=== PATIENT | male | born 1940 | race Caucasian/White ===

== ENCOUNTER 2017-05-16 11:38 | Inpatient (IN) | payer OTHER ==
--- NOTE | ~2017-05-16 | DS ---
Unit #: [id number] #: [id number] Patient: STEVE COBURN [id number] [address] [address] [id number] I MR#: [id number] NAME: STEVE COBURN. ROOM: 305 Age: 77 Sex: M Admission Date: 05/16/2017 : 1940 Discharge Date: 05/18/2017 Attending Physician: Sybil Upton M.D. Primary Care Physician: Ko Caban M.D. DISCHARGE SUMMARY DIAGNOSES ON ADMISSION 1. Gross hematuria. 2. Acute urinary tract infection. DIAGNOSES ON DISCHARGE 1. Gross hematuria. 2. Acute Kluyvera urinary tract infection. 3. Acute yeast urinary tract infection. 4. Chronic atrial fibrillation. 5. Type 2 diabetes mellitus with peripheral neuropathy. 6. Hyperlipidemia. 7. Hypertension. 8. Early Alzheimer's dementia. 9. Benign prostatic hypertrophy. 10. Gastroesophageal reflux disease. 11. Depression. CONSULTATION Dr. Mantilla in urology consultation. LABS AND PROCEDURES DONE The patient's creatinine is 0.9, sodium 132, potassium is 3.9, AST and ALT is within normal limits, INR is 1.2, WBC 7.8, hemoglobin is 14.0, platelet count is 117. Urinalysis revealed 25-50 WBCs, and yeast was present. Urine culture is positive for Kluyvera, greater than 100,000. Hemoglobin A1c is 10.4, blood cultures did not reveal any growth. CT scan of head did not reveal any acute intracranial findings. CT scan of abdomen and pelvis revealed mild straining around bladder. HOSPITAL COURSE Kqigtai-ribd-nonu-old male was admitted to [facility] with gross hematuria, details are as per admission history and physical. The patient was seen by urology in consultation. The patient's gross hematuria is likely secondary to acute urinary tract infection. The patient's urine is clear now. The patient will be treated with antibiotic for yeast and bacterial infection. Today, the patient is comfortable. He is anxious to go home. RECOMMENDATIONS ON DISCHARGE Condition is stable. Activity is as tolerated. Unit #: [id number] #: [id number] Patient: STEVE COBURN DISCHARGE MEDICATIONS 1. Flomax 0.4 mg p.o. daily 2. Xarelto 15 mg p.o. daily 3. Neurontin 100 mg p.o. b.i.d. 4. Prozac 20 mg p.o. daily 5. Lipitor 40 mg p.o. q.h.s. 6. Namenda 10 mg p.o. b.i.d. 7. Metoprolol 50 mg p.o. b.i.d. 8. Lisinopril 5 mg p.o. daily 9. Enteric coated aspirin 81 mg p.o. daily 10. Glipizide 10 mg p.o. b.i.d. 11. Vitamin B12 1000 mcg p.o. daily 12. Nitrofurantoin 100 mg p.o. b.i.d. for one week 13. Diflucan 100 mg p.o. daily for five days FOLLOWUP The patient is advised to follow up with primary care physician in one week and have a CBC and BMP done. The patient is advised to call primary care physician or go to the ER if his condition changes. The patient is advised to follow up with urology as recommended. Please make note that the patient's diabetes is under poor control and he may need insulin. I will leave this up to the patient's primary care physician. I have discussed discharge plan with the patient's son and tkpycuce-nt-pap yesterday in detail. Dictated by... Bobbi Martinez/to TD: 05/19/2017 08:20 JOB #: [id number] DISCHARGE SUMMARY Page 1 of 1 X Sybil Upton MD X DISCHARGE SUMMARY
--- NOTE | ~2017-05-16 | CT4 ---
[facility] A Service of [facility] RADIOLOGY TEXT RESULTS PATIENT: STEVE COBURN LOCATION: [facility] : 42 UNIT #: [id number] AGE: [address]: Octavio Drake DO SEX: M ORDER DR: [id number] [facility] [address] [place], [place] [address] [id number] E MR#: [id number] Acc #: [id number] NAME: STEVE COBURN. : 1940 SEX: M STUDY DATE/TIME: 05/16/2017 12:39 UNIT: JOANNA ROOM: STUDY DESCRIPTION: CT Abd and Pelv Wo Cont Attending Physician: Octavio Drake D.O. Ordering Physician: Octavio Drake D.O. Primary Care Physician: Ko Caban M.D. MEDICAL IMAGING REPORT This report is preliminary unless electronic signature is present EXAM CT abdomen and pelvis INDICATIONS Hematuria for 2 days. Prostatic hypertrophy. Dizziness. TECHNIQUE CT abdomen and pelvis without contrast. Coronal and sagittal reconstructions were obtained. This CT exam was performed with one or more of the following radiation dose reduction techniques: automatic exposure control, adjustment of mA and/or kV according to patient size, and iterative reconstruction. COMPARISON CT abdomen and pelvis dated 02/07/11. FINDINGS Abdomen: The heart is mildly enlarged. No pericardial or pleural effusion. No urinary calculi. No hydronephrosis. The liver, gallbladder, pancreas, spleen, and adrenal glands are within normal limits. The bowel is not dilated. Patient does have a gastric band. Orientation of gastric band is within normal limits. The bowel is not dilated. There is a small umbilical hernia. The appendix is normal. The abdominal aorta is normal in caliber. Pelvis: There is some mild stranding associated with the bladder. No significant bladder wall thickening. No enlarged pelvic or inguinal lymph nodes. [facility] A Service of [facility] RADIOLOGY TEXT RESULTS PATIENT: STEVE COBURN LOCATION: [facility] : 42 UNIT #: [id number] AGE: [address]: Octavio Drake DO SEX: M ORDER DR: No acute osseous abnormalities. IMPRESSION 1. Mild stranding around the bladder. Please correlate with urinalysis to identify any cystitis. 2. No urinary calculi. No hydronephrosis. Dictated by... Deven Goldsmith M.D. THIS IS AN ELECTRONICALLY VERIFIED REPORT Deven Goldsmith M.D. at 05/16/2017 3:26 PM JILLIAN/parminder TD: 05/16/2017 13:53 JOB #: [id number] MEDICAL IMAGING REPORT Page 1 of 1 COPY
--- NOTE | ~2017-05-16 | HP ---
Unit #: [id number] #: [id number] Patient: STEVE COBURN [id number] [address] [address] [id number] I MR#: [id number] NAME: STEVE COBURN. ROOM: 305 Age: 77 Sex: M Admission Date: 05/16/2017 : 1940 Attending Physician: Sybil Upton M.D. Primary Care Physician: Ko Caban M.D. HISTORY AND PHYSICAL CHIEF COMPLAINT Blood in the urine. HISTORY OF PRESENT ILLNESS The patient is 77 year old male with history of atrial fibrillation, diabetes, hypertension, dementia, who presented to the emergency room with blood in the urine. The patient stated the blood in the urine has been present on and off for the last one week. The patient also complains of generalized weakness and presented to the emergency room. The patient was found to have a UTI with urine positive for 2+ leukocyte esterase, positive nitrates, 4+ blood and innumerable rbc's and is being admitted for the above reasons. Denies any fever or chills, nausea or vomiting. Denies any blood in the stools. Denies any productive cough. PAST MEDICAL HISTORY 1. History of atrial fibrillation. 2. Diabetes mellitus. 3. Hyperlipidemia. 4. Hypertension. 5. Alzheimer dementia. 6. BPH. 7. GERD. 8. Depression. PAST SURGICAL HISTORY 1. History of cardiac ablation. 2. Rotator cuff repair. 3. Lap-Band. HOME MEDICATIONS 1. Lopressor. 2. Lipitor. 3. Glipizide. 4. Memantine. 5. Neurontin. 6. Zestril. 7. Prozac. 8. Flomax. 9. Aspirin. 10. Vitamin B12. 11. Xarelto. Unit #: [id number] #: [id number] Patient: STEVE COBURN ALLERGIES None. SOCIAL HISTORY The patient lives with his . He stopped smoking 33 years ago. Does not drink alcohol. FAMILY HISTORY Positive for congestive heart failure. REVIEW OF SYSTEMS A 14-point review of systems performed and only pertinent positive findings as described above, remaining are negative. PHYSICAL EXAMINATION VITAL SIGNS: Temperature 99.3, pulse 68, respiratory rate 18, blood pressure 109/78, saturating 96% at room air. GENERAL: Patient is lying on the bed not in acute distress. HEENT: Atraumatic, normocephalic. Pupils equal, round, and reactive to light and accommodation. Extraocular movements are intact. NECK: Supple. LUNGS: Decreased air entry at the bases. HEART: Irregular rate and rhythm. ABDOMEN: Soft, positive bowel sounds. EXTREMITIES: No cyanosis, no clubbing. NEUROLOGIC: Alert, awake, oriented. No gross focal motor deficit. DIAGNOSTIC STUDIES LABORATORY: UA shows 2+ leukocyte esterase, positive nitrates, urine rbc's innumerable, 4+ blood, urine wbc's 25-50, urine bacteria 3+. WBC 9.6, hemoglobin 14.6, hematocrit 45.3, platelets 122. INR 1.2. Sodium 132, potassium 5.2, chloride 98, bicarb 27, glucose 327, BUN 22, creatinine 1, AST 17, ALT 20, alkaline phosphatase 99. IMAGING: CT abdomen and pelvis shows mild stranding around the bladder. Please correlate with urinalysis to identify any cystitis. No urinary calculi. No hydronephrosis. CT head showed no acute intracranial findings. Atrophy and chronic small vessel changes. PLAN 1. Admit patient as inpatient with telemetry. 2. IV antibiotics with Rocephin. 3. Urology consult for hematuria. 4. Hold Xarelto and aspirin. 5. Patient is running hypotensive with blood pressure running in the 90s. 6. We have started the patient on a sepsis protocol. 7. Continue with IV fluids at 100 mL per hour. 8. Check lactic acid. 9. Further recommendations will follow. Dictated by Unit #: [id number] #: [id number] Patient: STEVE COBURN M.D. AMA/eugene TD: 05/16/2017 18:41 JOB #: [id number] HISTORY AND PHYSICAL Page 1 of 1 X ELINA IBANEZ MD X HISTORY AND PHYSICAL
--- NOTE | ~2017-05-16 | CT71 ---
[facility] A Service of [facility] RADIOLOGY TEXT RESULTS PATIENT: STEVE COBURN LOCATION: [facility] : 42 UNIT #: [id number] AGE: [address]: Octavio Drake DO SEX: M ORDER DR: [id number] [facility] [address] [place], [place] [address] [id number] E MR#: [id number] #: [id number] NAME: STEVE COBURN : 1940 SEX: M STUDY DATE/TIME: 05/16/2017 12:27 UNIT: JOANNA ROOM: STUDY DESCRIPTION: CT Head Wo Contrast Attending Physician: Octavio Drake D.O. Ordering Physician: Octavio Drake D.O. Primary Care Physician: Ko Caban M.D. MEDICAL IMAGING REPORT This report is preliminary unless electronic signature is present EXAM CT head INDICATIONS Hematuria. Dizziness. Vision changes. TECHNIQUE CT head without contrast. This CT exam was performed with one or more of the following radiation dose reduction techniques: automatic exposure control, adjustment of mA and/or kV according to patient size, and iterative reconstruction. COMPARISON CT head 06/01/2015 FINDINGS There is no acute intracranial hemorrhage, mass lesion, or acute infarct. Hypodensities in the periventricular and subcortical white matter consistent with chronic small vessel changes. The ventricles and basilar cisterns are normal in size and configuration. No extraaxial collections. No acute osseous abnormalities. Visualized paranasal sinuses and mastoid air cells are clear. IMPRESSION 1. No acute intracranial findings. 2. Atrophy and chronic small vessel changes. Dictated by... Deven Goldsmith M.D. THIS IS AN ELECTRONICALLY VERIFIED REPORT Deven Goldsmith M.D. at 05/16/2017 3:26 PM [facility] A Service of [facility] RADIOLOGY TEXT RESULTS PATIENT: STEVE COBURN LOCATION: [facility] : 42 UNIT #: [id number] AGE: [address]: Octavio Drake DO SEX: M ORDER DR: Lawrence TD: 05/16/2017 14:36 JOB #: [id number] MEDICAL IMAGING REPORT Page 1 of 1 COPY
--- NOTE | ~2017-05-16 | CO ---
Unit #: [id number] #: [id number] Patient: STEVE ÁLVAREZ [id number] [address] [place], [place] [address] [id number] I MR#: [id number] NAME: STEVE ÁLVAREZ. ROOM: 305 Age: 77 Sex: M Admission Date: 05/16/2017 : 1940 Attending Physician: Sybil Upton M.D. Primary Care Physician: Ko Caban M.D. Consultation Date: 05/17/2017 CONSULTATION REPORT CHIEF COMPLAINT Gross hematuria. HISTORY OF PRESENT ILLNESS Mr. Álvarez is a 77-year-old gentleman with gross hematuria and discomfort with urination since . The patient has a history of BPH. He states he has had problems urinating in the past. He reports he had been taking Flomax, but he ran out of the medication and then he started noticing having more problems urinating and then there was blood in his urine and discomfort with urination. He denes fever or chills. He has a history of anticoagulation for atrial fibrillation I believe. He states he is able to empty completely, but it is a little more difficult to empty since the blood and the discomfort started. PAST MEDICAL HISTORY 1. Atrial fibrillation. 2. BPH. 3. Congestive heart failure. 4. TIA. 5. Diabetes. 6. Congestive heart failure. SOCIAL HISTORY He denies smoking and drinking. FAMILY HISTORY Noncontributory. ALLERGIES No known drug allergies. CURRENT MEDICATIONS 1. Flomax. 2. Xarelto. 3. Aspirin. 4. Neurontin. 5. Glipizide. 6. Lisinopril. 7. Fluoxetine. 8. Metoprolol. 9. Amantadine. 10. Atorvastatin. REVIEW OF SYSTEMS Unit #: [id number] #: [id number] Patient: STEVE ÁLVAREZ Negative for 10 systems except for discomfort with urination and the blood in the urine. PHYSICAL EXAMINATION VITALS: Stable. He is afebrile. HEENT: Eyes equal and reactive to light. Trachea midline. LUNGS: Benign. HEART: Benign, but some atrial fibrillation. Rapid heart rate was not appreciated. ABDOMEN: Soft without rebound or guarding. No CVA tenderness. No bruising. Mild suprapubic tenderness bilaterally. : Descended testicles. Normal external genitalia. Normal meatus. There is no tenderness on his genitals. EXTREMITIES: No cyanosis, clubbing. NEUROLOGIC: Cranial nerves II through X are intact. DIAGNOSTIC STUDIES LABORATORY: Creatinine 1.0, INR 1.2, white blood cell count 12. Urinalysis positive for nitrites, 2+ leukocytes, 2+ bacteria and there is yeast present. ASSESSMENT/PLAN Gross hematuria suspected, urinary tract infection. CT scan showed there is stranding around the bladder, but no stones, no hydronephrosis. The patient is voiding spontaneously. He is on Rocephin and I will also start him on Diflucan. Follow up on the urine culture, which preliminarily shows gram negative rods. Eventually he needs and consents to cystoscopy. Thank you for the referral. Dictated by... Marcin Mantilla M.D. СВЕТЛАНА/mukesh TD: 05/17/2017 13:17 JOB #: [id number] CONSULTATION REPORT Page 1 of 1 X Marcin Mantilla MD X CONSULTATION REPORT
--- NOTE | ~2017-05-16 | A ---
[facility] Nutrition Therapy DATE: 05/17/17 Patient: STEVE COBURN Physician: BRENDAN Address: [address] [place] [address] Room/Bed: [address] [place] [address], Zip: [place] [address] Admit Date: 05/16/17 Date of : [birth year] Height: 5 10 Weight: 253 114.8 NUTRITIONAL ASSESSMENT: REASON: Consult RE: BMI 36 PMH: CHF, DM, TIA, BPH, Afib Anthropometrics: Ht: 5'10" Wt: 115 kg BMI: 36.3 Labs: Accuchecks 347-393 Assessment: Chart reviewed, events noted. RD consulted to see the pt for BMI 36. RD spoke with the pt in detail regarding his dietary habits, and provided extensive heart healthy/ DM diet education. Pt was appreciate and interactive in the diet education, acknowledging that he does need to make changes to his diet. RD provided printed materials and encouraged the pt to contact RD with any additional questions. RD to remain available. Recommendations: 1. Follow HH/CC diet as instructed by RD. 2. Pt would benefit from seeing an outpatient RD for accountability and follow up diet education. Please consult RD for any further nutritional needs. Respectfully, COLLEEN SAMANO RD, LD Food and Nutritional Services [facility] cc: client file
[~2017-05-16 11:38] MED LIST: ACETAMINOPHEN650 M1 PO; AMBIEN CR PO; AMBIEN PO; AMIODARONE PO; ANTIVERT PO; ARICEPT PO; ASPIRIN PO; ASPIRIN81 M1 PO; ATORVASTATIN CA10 MG PO; BENTYL20 MG PO; CELEXA PO; CITALOPRAM HBR10 MG PO; COUMADIN PO; COUMADIN10 MG PO; COUMADIN7.5 MG; COUMADIN7.5 MG PO; EXELON1 EACH TD; EXELON1 PATCH .2 EXT; FLOMAX0.4 M1; FLOMAX0.4 M1 PO; FLOMAX0.4 MG PO; GLUCOPHAGE XR500 MG; GLUCOPHAGE XR500 MG PO; GLUCOTROL PO; GLYBURIDE2.5 MG PO; KCL PO; KLOR-CON PO; LASIX PO; LASIX20 MG PO; LIPITOR PO; LIPITOR40 MG; LISINOPRIL5 MG PO; LOPRESSOR PO; LORTAB 10/500 T1 TAB PO; MELATONIN10 M1 PO; METFORMIN HCL500 M1 PO; METFORMIN PO; METOPROLOL TAR25 MG PO; METOPROLOL TART25 MG PO; NAMENDA10 MG PO; NEXIUM PO; NITROSTAT0.4 MG SL; PHENERGAN25 MG PO; POTASSIUM CHLO10 ME1 PO; POTASSIUM CHLO10 MEQ PO; PROZAC PO; TOPROL XL PO; VITAMIN B-121000 MCG PO; [UNRECOGNIZED DRUG - OTHER]
[2017-05-16 12:08] LABS: URINE SOURCE CLEAN CATCH
[2017-05-16 12:15] LABS: URINE APPEARANCE CLOUDY; URINE BILIRUBIN NEG (NEG); URINE BLOOD 4+ (NEG); URINE COLOR RED; URINE GLUCOSE 1000 MG/DL (NORM); URINE KETONE 1+ (NEG); URINE LEUKOCYTE ESTERASE 2+ (NEG); URINE NITRATE POS (NEG); URINE PROTEIN 2+ (NEG); URINE SPECIFIC GRAVITY 1.015 (1.003-1.035); URINE UROBILINOGEN NORM (NORM)
[2017-05-16 12:29] LABS: CULTURE INDICATED? YES; URBCS1 AUWI INNUM /[HPF] (0-2); URINE AMORPHOUS SEDIMENT AMORP URATES; URINE BACTERIA AUWI 3+ (NEGATIVE); URINE YEAST PRESENT; UWBCS1 AUWI 25-50 (0-5)
[2017-05-16 13:25] LABS: BASOPHIL# 0.1 X10e3 (0-0.3); BASOPHIL% 0.7 % (0-2.5); EOSINOPHIL# 0.1 X10e3 (0-0.7); EOSINOPHIL% 1.4 % (0.0-7.0); HEMATOCRIT 45.3 % (38.0-50.0); HEMOGLOBIN 14.6 gm/dL (13.0-16.0); LYMPHOCYTE# 1.7 X10e3 (1.0-3.5); LYMPHOCYTE% 17.7 % (17.0-45.0); MEAN CELL VOLUME 93.4 FL (83-96); MEAN CORPUSCULAR HEMOGLOBIN 30.2 PG (28-34); MEAN CORPUSCULAR HGB CONC 32.3 g/dL (30-36); MEAN PLATELET VOLUME 10.1 FL (6.5-11.5); MONOCYTE# 0.8 X10e3 (0-1.0); MONOCYTE% 8.1 % (3.0-12.0); NEUTROPHIL% 72.1 % (40-75); PLATELET COUNT 122 X10e3 (140-420); RED BLOOD COUNT 4.85 X10e (3.90-5.60); RED CELL DISTRIBUTION WIDTH 13.4 % (11.0-15.5); WHITE BLOOD COUNT 9.6 X10e3 (4.0-10.5)
[2017-05-16 13:31] LABS: DIFF IND NO
[2017-05-16 13:39] LABS: INR 1.2
[2017-05-16 13:48] LABS: ALBUMIN SERUM 3.9 g/dL (3.5-5.0); BILIRUBIN,TOTAL 1.5 mg/dL (0.2-2.0); CALCIUM SERUM 9.3 mg/dL (8.4-10.2); GLOM FILT RATE Estimated 73.3 mL/min (>60); POTASSIUM 5.2 mmol/L (3.5-5.1); PROTEIN TOTAL SERUM 6.7 g/dL (6.0-8.3)
[2017-05-16] MEDS ORDERED: LOPRESSOR PO (15:11)
[2017-05-16] MEDS ORDERED: MEMANTINE HCL10 MG PO (15:11)
[2017-05-16] MEDS ORDERED: PROZAC PO (15:11)
[2017-05-16] MEDS ORDERED: GLIPIZIDE10 MG PO (15:11)
[2017-05-16] MEDS ORDERED: LIPITOR40 MG PO (15:11)
[2017-05-16] MEDS ORDERED: PATIENT'S PHARMACY (15:11)
[2017-05-16] MEDS ORDERED: XARELTO15 MG PO (15:12)
[2017-05-16] MEDS ORDERED: VITAMIN B122500 MCG PO (15:12)
[2017-05-16] MEDS ORDERED: FLOMAX0.4 M1 PO (15:12)
[2017-05-16] MEDS ORDERED: ASPIRIN81 M2 PO (15:12)
[2017-05-16] MEDS ORDERED: LISINOPRIL PO (15:13)
[2017-05-16] MEDS ORDERED: NEURONTIN100 MG PO (15:13)
[2017-05-17 06:25] LABS: BASOPHIL# 0.1 X10e3 (0-0.3); BASOPHIL% 0.5 % (0-2.5); EOSINOPHIL# 0.1 X10e3 (0-0.7); EOSINOPHIL% 1.2 % (0.0-7.0); HEMOGLOBIN 14.4 gm/dL (13.0-16.0); LYMPHOCYTE# 2.3 X10e3 (1.0-3.5); MEAN CELL VOLUME 94.2 FL (83-96); MEAN CORPUSCULAR HEMOGLOBIN 30.2 PG (28-34); MEAN CORPUSCULAR HGB CONC 32.1 g/dL (30-36); MEAN PLATELET VOLUME 10.4 FL (6.5-11.5); MONOCYTE% 8.4 % (3.0-12.0); NEUTROPHIL# 8.6 X10e3 (1.5-7.1); NEUTROPHIL% 70.9 % (40-75); PLATELET COUNT 110 X10e3 (140-420); RED BLOOD COUNT 4.77 X10e (3.90-5.60); RED CELL DISTRIBUTION WIDTH 13.8 % (11.0-15.5); WHITE BLOOD COUNT 12.1 X10e3 (4.0-10.5)
[2017-05-17 06:33] LABS: DIFF IND NO
[2017-05-17 08:45] LABS: CALCIUM SERUM 8.7 mg/dL (8.4-10.2); GLOM FILT RATE Estimated 73.3 mL/min (>60); POTASSIUM 4.2 mmol/L (3.5-5.1)
[2017-05-18 05:35] LABS: HEMATOCRIT 43.4 % (38.0-50.0); MEAN CELL VOLUME 93.1 FL (83-96); MEAN CORPUSCULAR HEMOGLOBIN 30.1 PG (28-34); MEAN CORPUSCULAR HGB CONC 32.4 g/dL (30-36); MEAN PLATELET VOLUME 10.5 FL (6.5-11.5); RED BLOOD COUNT 4.66 X10e (3.90-5.60); RED CELL DISTRIBUTION WIDTH 13.8 % (11.0-15.5); WHITE BLOOD COUNT 7.8 X10e3 (4.0-10.5)
[2017-05-18 06:24] LABS: BUN/CREATININE RATIO 16.66; CALCIUM SERUM 9.1 mg/dL (8.4-10.2); CREATININE SERUM 0.9 mg/dL (0.6-1.4); GLOM FILT RATE Estimated 83.3 mL/min (>60); MAGNESIUM 1.7 mg/dL (1.6-3.0); POTASSIUM 3.9 mmol/L (3.5-5.1)
[2017-05-18] MEDS ORDERED: DESENEX45 G1 EXT (10:53)
[2017-05-18] MEDS ORDERED: NITROFURANTOIN100 M3 PO (10:53)
[2017-05-18] MEDS ORDERED: DIFLUCAN PO (10:54)
== END 2017-05-18 14:16 | disposition home health service (06) | DRG 872 ==
LOC: CED 11:38 → CEDOF 15:25 → CED 15:25 → CEDOF 19:53 → C3A PCU 19:53
PROVIDERS: Emergency Medicine; Internal Medicine
DX: A41.9 Sepsis, unspecified organism (principal); E11.65 Type 2 diabetes mellitus with hyperglycemia; E11.42 Type 2 diabetes mellitus with diabetic polyneuropathy; G30.9 Alzheimer's disease, unspecified; N39.0 Urinary tract infection, site not specified; B37.49 Other urogenital candidiasis; I11.0 Hypertensive heart disease with heart failure; I50.9 Heart failure, unspecified; I48.91 Unspecified atrial fibrillation; F32.9 Major depressive disorder, single episode, unspecified; F02.80 Dementia in other diseases classified elsewhere, unspecified severity, without behavioral disturbance, psychotic disturbance, mood disturbance, and anxiety; E78.5 Hyperlipidemia, unspecified; Z79.84 Long term (current) use of oral hypoglycemic drugs; K21.9 Gastro-esophageal reflux disease without esophagitis; N40.0 Benign prostatic hyperplasia without lower urinary tract symptoms; Z98.84 Bariatric surgery status; Z79.82 Long term (current) use of aspirin; Z87.891 Personal history of nicotine dependence; G47.00 Insomnia, unspecified; B96.89 Other specified bacterial agents as the cause of diseases classified elsewhere; R31.0 Gross hematuria
CPT/HCPCS: 36415; 70450; 74176; 80048; 80053; 81003; 82947; 83036; 83605; 83735; 85025; 85027; 85610; 85730; 87040; 87086; 87088; 87186; 96365; 97116; 97162; 97166; 99285; G8978-GP; G8979-GP; G8987-GO; G8988-GO; J0696; J1450; J1815